=== PATIENT | female | born 1975 | race African-American/Black ===

== ENCOUNTER → 2022-03-24 | Outpatient (CLI) | payer OTHER ==
[2014-09-21 10:50] VITALS: BP 154/88
--- NOTE | 2022-03-24 12:02 | RAD ---
AP and lateral views lumbar spine. 03/24/2022 INDICATION: Low back pain COMPARISON STUDY: None FINDINGS: No evidence of acute fracture or alignment abnormality is identified. Vertebral body height s are maintained. No spondylolysis or spondylolisthesis is seen. Mild disc space narrowing at L5-S1 n oted. Mild facet arthrosis noted at L4-S1. No acute soft tissue changes are identified. IMPRESSION: Mild degenerative changes of the lumbosacral junction. No evidence of acute osseous abnor mality is identified. Electronically signed by: Tito Cerna MD (03/24/2022 12:00 PM) [id number]
== END ==
LOC: RAD 09:22
PROVIDERS: ATTEND Anesthesiology Pain Medicine
DX: Z02.71 Encounter for disability determination (principal); M47.817 Spondylosis without myelopathy or radiculopathy, lumbosacral region; M48.07 Spinal stenosis, lumbosacral region
CPT/HCPCS: 72100